=== PATIENT | female | born 1990 | race Caucasian/White ===

== ENCOUNTER → 2018-09-16 | Outpatient (CLI) | payer OTHER ==
--- NOTE | 2018-09-16 13:36 | US ---
EXAM DESCRIPTION: Abdomen Sonogram Complete CLINICAL HISTORY: GB ENLARGED COMPARISON: None Available. TECHNIQUE: Complete abdominal ultrasound FINDINGS: Visualized portions of the pancreas are unremarkable. No peripancreatic fluid. Bowel gas obscures some areas. Normal caliber of the aorta. Normal appearance of the inferior vena cava. Liver parenchyma is homogeneous in texture with normal echogenicity. No liver mass or intrahepatic bile duct dilatation. No liver surface irregularity. Normal appearance of hepatic veins and portal vein. Gallbladder contains small stones which appear to be freely mobile, shadowing in the fundus. Normal gallbladder wall thickness measures 2.6 mm. Technologist records a positive sonographic Mota sign. This may indicate acute cholecystitis despite the lack of other morphologic changes (pericholecystic fluid or gallbladder wall thickening). For clinically equivocal cases, radionuclide hepatobiliary scan may be helpful. Common bile duct is normal in caliber measuring 4.7 mm. The right kidney measures 9.2 cm in length. Normal renal cortical echogenicity. The renal cortical thickness appears normal. No right renal mass, shadowing stone or cyst. There is no hydronephrosis. Spleen is normal in size. No focal splenic lesion. The left kidney measures 10.9 cm in length. Normal renal cortical echogenicity. The renal cortical thickness appears normal. No left renal mass, shadowing stone or cyst. There is no hydronephrosis. IMPRESSION: Gallstones with positive sonographic Mota's sign. See above. Electronically signed by: Ge Patricia MD 09/16/2018 1:34 PM [employer] EXECUTIVE
== END ==
LOC: US 12:26
PROVIDERS: ATTEND Family Medicine
DX: K82.8 Other specified diseases of gallbladder (principal); K80.20 Calculus of gallbladder without cholecystitis without obstruction

== ENCOUNTER 2018-09-18 06:22 | Day surgery (SDC) | payer OTHER ==
[2018-09-18] MEDS ORDERED: METOCLOPRAMIDE HCL INJ 10 MG/2 ML VIAL ONE (07:00)
[2018-09-18] MEDS ORDERED: DEXAMETHASONE INJ 10 MG/ML VIAL ONE (07:00)
[2018-09-18] MEDS ORDERED: LIDOCAINE 1% 10 ML VIAL INJ ONE (07:00)
[2018-09-18] MEDS ORDERED: PROPOFOL 200 MG/20 ML VIAL IV ONE (07:00)
[2018-09-18] MEDS ORDERED: LABETALOL INJ 5 MG/ML VIAL ONE (07:00)
[2018-09-18] MEDS ORDERED: ONDANSETRON INJ 4 MG/2 ML VIAL ONE (07:00)
[2018-09-18] MEDS ORDERED: BUPIVACAINE 0.25% W/EPI 50 ML VIAL INJ ONE (07:23)
[2018-09-18] MEDS ORDERED: LACTATED RINGERS 1,000 ML ONE ×2 (07:23→11:37)
[2018-09-18] MEDS ORDERED: SODIUM CHL 0.9% 100ML MINI-BAG 100 ML IVPB ONE ×2 (07:23→12:23)
[2018-09-18] MEDS ORDERED: HEPARIN SODIUM (PORCINE) 10,000 UNITS/ML VIAL ONE (07:24)
[2018-09-18] MEDS ORDERED: ceFAZolin SODIUM 1 GM VIAL ONE ×3 (07:24→12:23)
[2018-09-18] MEDS ORDERED: SUGAMMADEX SODIUM 200 MG/2 ML VIAL IV ONE (07:42)
[2018-09-18] MEDS ORDERED: fentaNYL CITRATE INJ 50 MCG/ML AMP ONE ×2 (07:43→10:33)
[2018-09-18] MEDS ORDERED: MIDAZOLAM INJ 2 MG/2 ML VIAL ONE (07:43)
[2018-09-18] MEDS ORDERED: ROCURONIUM BROMIDE 10 MG/ML VIAL ONE (07:44)
[2018-09-18] MEDS ORDERED: SUCCINYLCHOLINE CHLORIDE 200 MG/10 ML VIAL ONE (08:03)
[2018-09-18] MEDS: HYDROmorphone HCL INJ 2 MG/ML VIAL ONE ×8 (12:18→13:06)
[2018-09-18] MEDS: fentaNYL CITRATE INJ 50 MCG/ML AMP ONE ×2 (13:11→13:24)
[2018-09-18] MEDS ORDERED: HYDROcodone 5MG/APAP 325MG 1 EA TAB ONE (13:44)
[2018-09-18 13:45] VITALS: O2SAT 96
--- NOTE | 2018-09-18 14:05 | OP ---
DATE OF PROCEDURE: 09/18/18 PREOPERATIVE DIAGNOSIS: 1. Symptomatic cholelithiasis. POSTOPERATIVE DIAGNOSIS: 1. Symptomatic cholelithiasis. 2. Hydrops of the gallbladder. 3. Cystic duct obstruction. 4. Subacute cholecystitis. PROCEDURE: 1. Laparoscopic cholecystectomy with intraoperative cholangiography using fluoroscopy. SURGEON: Eric Duke MD. GREEN WARE CASTER: None. ANESTHESIA: Local infiltration of 0.25% Marcaine with epinephrine and general endotracheal anesthesia. INDICATION: The patient is a 28-year-old female who presented with a two-month history of right upper quadrant pain with radiation to the back and fatty food intolerance. She had sonographically diagnosed cholelithiasis along with a CT scan showing cholelithiasis, neither of which showed any inflammatory processes. However, the gallbladder was quite tender on the ultrasound as a Mota's sign. The patient was also 9 months status post section. FINDINGS: The gallbladder wall was thickened. There were some adhesions to the gallbladder. The gallbladder contained white bile. The cystic duct was quite large. Attempting cannulation was difficult due to a stone which I was unable to milk out. Eventually, I was able to break it down enough to get the catheter in. Intraoperative cholangiography revealed free flow into the duodenum with no filling defects or strictures noted. Also, two small lacerations were made in the dome of the liver when manipulating the gallbladder specimens for removal. DESCRIPTION OF PROCEDURE: After adequate general endotracheal anesthesia was obtained, the patient was in the supine position, prepped and draped in the usual sterile manner. Surgical time-out was taken, noting that the patient had received 2 grams of Ancef. The infraumbilical area was infiltrated with local anesthesia. A curvilinear incision was fashioned and carried down through the subcutaneous tissue to the midline fascia. Traction sutures were placed on either side of the midline. A small incision was made in the midline fascia and the peritoneum was opened bluntly. Yonas trocar was introduced under direct vision into the abdominal cavity and fixed in place with the 20 mL balloon. CO2 was then insufflated until a pressure of 12 mmHg was reached and the abdomen was tympanitic in all four quadrants. When this was done, the laparoscope was introduced. The abdomen was inspected with the previously noted findings. The patient was then placed in reverse Trendelenburg position, turned to the left side. The upper abdominal ports were placed under direct vision. The gallbladder was grasped, retracted anteriorly and laterally. The adhesions to the gallbladder were taken down using blunt dissection. The neck of the gallbladder was retracted laterally. The triangle of Calot was then explored. The cystic duct was quite large and the cystic duct was clipped proximally and then a small incision was made distally to that. Attempts to cannulate the catheter at this time were unable to get flow going distally and this was complicated by the fact that the clip came off the proximal duct and a large amount of white bile was evacuated using the suction device. Eventually, I moved farther down more distally on the duct. An incision was made and although I could not get bile back, I was able to advance the catheter further, clip it into place and cholangiograms were completed which revealed free flow into the duodenum with no filling defects or strictures noted. When this was done, the cystic duct catheter was removed. I was able to obtain some stone material from the distal cystic duct with manipulation. I did not feel comfortable about the clip on the cystic duct distally, so I used 2 0-Vicryl ties that were placed, again, more stone material was removed and these were tightened. At this point, the cystic duct artery was identified, clipped twice proximally and divided. The gallbladder was dissected free from the gallbladder bed of the liver using electrocautery. Attempts were made to bring it out through the infraumbilical port, however, it would not even come up into the port, so it was placed in an EndoCatch bag, which is when two small rents were made in the dome of the liver. The gallbladder was placed in the EndoCatch bad and removed from the infraumbilical port site in the usual manner under direct vision. The port was replaced. The cautery was then turned up to 50 and then 65 and eventually the bleeding from the two places in the dome of the liver were was controlled. When this was done, the subhepatic space and subphrenic space were irrigated copiously with saline. Eventually, the irrigation was noted to be clear. The natalie hepatis was inspected and no bleeding or bile leak was identified. The gallbladder bed of the liver revealed no bleeding and neither did the dome of the liver. At this point, the pelvis was inspected. There was a large amount of sanguineous fluid and this was aspirated to the greatest of our ability using the suction device. Again, the upper abdomen was inspected and, as noted, hemostasis was adequate, so the upper abdominal ports were removed unresponsive. Hemostasis was noted there. At this point, the CO2, the laparoscope and the infraumbilical port were removed. The infraumbilical port site fascia was approximated with a single [id number] suture of 0 Vicryl. Subcutaneous tissue was irrigated with saline. Skin edges were approximated with 4-0 Vicryl subcuticular sutures, benzoin and Steri-Strips. Sterile dressings were applied. The patient was awakened and taken to the Recovery Room in good and stable condition. Estimated blood loss was 125 to 150 mL. All sponge, needle and instrument counts were correct. #[id number] [facility]
[2018-09-18 14:37] VITALS: BP 124/70; TEMP 98
== END 2018-09-18 14:30 | disposition home or self-care (01) ==
LOC: AMB 06:22
PROVIDERS: ATTEND Surgery
DX: K80.01 Calculus of gallbladder with acute cholecystitis with obstruction (principal); K82.1 Hydrops of gallbladder; K66.0 Peritoneal adhesions (postprocedural) (postinfection); K21.9 Gastro-esophageal reflux disease without esophagitis; K44.9 Diaphragmatic hernia without obstruction or gangrene; I10 Essential (primary) hypertension; Z79.1 Long term (current) use of non-steroidal anti-inflammatories (NSAID); Z79.899 Other long term (current) drug therapy
CPT/HCPCS: 00790; 47563; 76000; J0330; J0690; J1100; J1170; J1644; J2250; J2405; J2765; J3010; J3490; J7050; J7120